=== PATIENT | male | born 1960 | race African-American/Black ===

== ENCOUNTER → 2018-06-11 | Outpatient (CLI) | payer BC ==
[~2018-06-11] MED LIST: LISINOPRIL10 MG PO; TEGRETOL200 MG PO
--- NOTE | 2018-06-11 11:18 | Diagnostic Imaging Report ---
EXAM: CHEST 2 VIEWS DATE: 06/11/2018 10:07 AM INDICATION: Back pain, chest tightness COMPARISON: None FINDINGS: Lines and tubes: None Heart size normal. No focal pulmonary opacity, pleural effusion or pneumothorax. Upper abdomen unremarkable. No acute bony abnormality. IMPRESSION: No evidence for acute disease. Signed by: Dr. Ruben Barriga M.D. on 06/11/2018 11:15 AM
--- NOTE | 2018-06-11 15:58 | Diagnostic Imaging Report ---
Ventilation/perfusion lung scan Clinical Information: Right-sided chest pain x 3 weeks. History of PE in 2015. Comparison: Chest radiograph 06/11/2018 Discussion: Xenon-133 gas 8.0 mCi was administered via inhalation. Dynamic images of the lungs in the posterior projection were obtained through single breath, equilibrium, and washout phases. Distribution of tracer activity is irregular throughout the lungs. There are no segmental ventilatory defects. Washout of tracer is diffusely delayed with bibasilar air trapping. Perfusion images of the lungs were obtained in multiple projections following intravenous administration of approximately 7.0 mCi of Tc-99m MAA. Distribution of tracer is mildly irregular throughout the lungs. The contours of the lungs are well demarcated. There are no segmental perfusion defects of any size. The cardiomediastinal silhouette is unremarkable. Impression: 1. Scan findings represent a VERY LOW probability for acute pulmonary embolic disease based on the PIOPED II criteria. 2. Scan evidence of obstructive lung disease. Signed by: Dr. Eileen Carballo M.D. on 06/11/2018 3:55 PM
== END ==
LOC: NM 07:45
PROVIDERS: ATTEND Internal Medicine Critical Care Medicine
DX: R07.89 Other chest pain (principal); Z86.711 Personal history of pulmonary embolism
CPT/HCPCS: 71046; 78582; A9540; A9558